=== PATIENT | female | born 1985 | race Two or more races ===

== ENCOUNTER 2017-02-20 11:57 | Emergency (ER) | payer MEDICAID ==
[2017-02-20 14:29] LABS: Hematocrit 39 % (35-47); Mean Corpuscular HGB Conc 34 g/dl (31-36); Mean Corpuscular Hemoglobin 28 pg (27-31); Mean Corpuscular Volume 84 fL (80-97); Mean Platelet Volume 9 um3 (7.4-10.4); Red Blood Count 4.65 10^6/ul (4.0-5.4); Red Cell Distribution Width 17 % (10.5-15); White Blood Count 7.1 10^3/ul (3.5-10.8)
[2017-02-20 14:46] LABS: Urine Bacteria Absent (Absent); Urine Bilirubin Negative (Negative); Urine Glucose Negative (Negative); Urine Nitrite Negative (Negative)
[2017-02-20 14:48] LABS: ALT 25 U/L (7-52); AST 22 U/L (13-39); Albumin 3.8 g/dL (3.2-5.2); Alkaline Phosphatase 107 U/L (34-104); Anion Gap 5 mmol/L (2-11); BUN/Creatinine Ratio 21.4 (8-20); Blood Urea Nitrogen 12 mg/dL (6-24); CO2 Carbon Dioxide 28 mmol/L (22-32); Calcium 8.8 mg/dL (8.6-10.3); Chloride 104 mmol/L (101-111); EGFR African American 164.6 (>60); Globulin 3.1 g/dL (2-4); Glucose 89 mg/dL (70-100); Potassium 3.4 mmol/L (3.5-5.0); Sodium 137 mmol/L (133-145); Total Protein 6.9 g/dL (6.4-8.9)
[2017-02-20 15:39] VITALS: BP 102/86
--- NOTE | 2017-02-20 18:38 | ED ---
Karmen Montague Anna, scribed for Kory Santos MD on 02/20/17 at 1300 . GI/ HPI - HPI Summary HPI Summary: Patient is a 31 y/o female coming to [facility] presenting with sudden onset of intermittent vaginal discharge that began last night. She had a positive home test three days ago. She had some brown spotting last night and had pink discharge and blood this morning. She took a home test this morning, which was negative. Her last normal period was 12/29/2016. She has some pelvic pain when she feels the spotting coming, of severity 3/10. The pain then resolves. Her history is significant for an ovarian cyst four months ago. - History of Current Complaint Chief Complaint: EDUrogenitalProblems Time Seen by Provider: 02/20/17 12:43 Stated Complaint: POSSITIVE PREG TEST NOW BLEEDING Hx Obtained From: Patient Timing: Intermittent Pain Intensity: 3 - Allergy/Home Medications Allergies/Adverse Reactions: Allergies Allergy/AdvReac Type Severity Reaction Status Date / Time No Known Allergies Allergy Verified 10/07/16 11:38 PMH/Surg Hx/FS Hx/Imm Hx Endocrine/Hematology History: Denies: Hx Anticoagulant Therapy, Hx Diabetes, Hx Thyroid Disease Cardiovascular History: Denies: Hx Hypertension, Hx Pacemaker/ICD Respiratory History: Denies: Hx Asthma, Hx Chronic Obstructive Pulmonary Disease (COPD) GI History: Denies: Hx Ulcer History: Reports: Other Problems/Disorders - ovarian cyst Denies: Hx Renal Disease Neurological History: Denies: Hx Dementia, Hx Seizures Psychiatric History: Denies: Hx Substance Abuse Infectious Disease History: No Infectious Disease History: Denies: Hx Hepatitis, Hx Human Immunodeficiency Virus (HIV), Traveled Outside the [place] in Last 30 Days - Family History Known Family History: Positive: Cardiac Disease - mother - [place] at 41 - Social History Alcohol Use: None Substance Use Type: Reports: None Smoking Status (MU): Never Smoked Tobacco Review of Systems Positive: discharge Positive: Myalgia - pelvic pain All Other Systems Reviewed And Are Negative: Yes Physical Exam Triage Information Reviewed: Yes Vital Signs On Initial Exam: Initial Vitals Temp Pulse Resp BP Pulse Ox 97.7 F 89 20 120/74 100 02/20/17 12:03 02/20/17 12:03 02/20/17 12:03 02/20/17 12:03 02/20/17 12:03 Vital Signs Reviewed: Yes Appearance: Positive: Well-Appearing, No Pain Distress Skin: Positive: Warm, Skin Color Reflects Adequate Perfusion, Dry Head/Face: Positive: Normal Head/Face Inspection Eyes: Positive: Normal ENT: Positive: Normal ENT inspection Neck: Positive: Supple, Nontender Respiratory/Lung Sounds: Positive: Clear to Auscultation, Breath Sounds Present Cardiovascular: Positive: RRR Abdomen Description: Positive: Soft, Other: - Very mild suprapubic tenderness Bowel Sounds: Positive: Present Musculoskeletal: Positive: Normal Neurological: Positive: Normal Psychiatric: Positive: Affect/Mood Appropriate Diagnostics - Vital Signs Vital Signs Temp Pulse Resp BP Pulse Ox 02/20/17 12:03 97.7 F 89 20 120/74 100 - Laboratory Lab Results: Lab Results 02/20/17 02/20/17 02/20/17 Range/Units 14:05 14:05 14:05 WBC 7.1 (3.5-10.8) 10^3/ul RBC 4.65 (4.0-5.4) 10^6/ul Hgb 13.0 (12.0-16.0) g/dl Hct 39 (35-47) % MCV 84 (80-97) fL MCH 28 (27-31) pg MCHC 34 (31-36) g/dl RDW 17 H (10.5-15) % Plt Count 237 (150-450) 10^3/ul MPV 9 (7.4-10.4) um3 Neut % (Auto) 63.4 (38-83) % Lymph % (Auto) 29.2 (25-47) % [place] % (Auto) 4.3 (1-9) % Eos % (Auto) 2.6 (0-6) % Baso % (Auto) 0.5 (0-2) % Absolute Neuts (auto) 4.5 (1.5-7.7) 10^3/ul Absolute Lymphs (auto) 2.1 (1.0-4.8) 10^3/ul Absolute Monos (auto) 0.3 (0-0.8) 10^3/ul Absolute Eos (auto) 0.2 (0-0.6) 10^3/ul Absolute Basos (auto) 0 (0-0.2) 10^3/ul Absolute Nucleated RBC 0 10^3/ul Nucleated RBC % 0.1 Sodium 137 (133-145) mmol/L Potassium 3.4 L (3.5-5.0) mmol/L Chloride 104 (101-111) mmol/L Carbon Dioxide 28 (22-32) mmol/L Anion Gap 5 (2-11) mmol/L BUN 12 (6-24) mg/dL Creatinine 0.56 (0.51-0.95) mg/dL Est GFR ( Amer) 164.6 (>60) Est GFR (Non-Af Amer) 128.0 (>60) BUN/Creatinine Ratio 21.4 H (8-20) Glucose 89 (70-100) mg/dL Calcium 8.8 (8.6-10.3) mg/dL Total Bilirubin 0.20 (0.2-1.0) mg/dL AST 22 (13-39) U/L ALT 25 (7-52) U/L Alkaline Phosphatase 107 H (34-104) U/L Total Protein 6.9 (6.4-8.9) g/dL Albumin 3.8 (3.2-5.2) g/dL Globulin 3.1 (2-4) g/dL Albumin/Globulin Ratio 1.2 (1-3) Beta HCG, Quant < 0.60 mIU/mL Urine Color Yellow Urine Appearance Cloudy Urine pH 7.0 (5-9) Ur Specific [place] 1.019 (1.010-1.030) Urine Protein Negative (Negative) Urine Ketones Negative (Negative) Urine Blood Negative (Negative) Urine Nitrate Negative (Negative) Urine Bilirubin Negative (Negative) Urine Urobilinogen Negative (Negative) Ur Leukocyte Esterase Trace H (Negative) Urine WBC (Auto) 1+(6-10/hpf) H (Absent) Urine RBC (Auto) Absent (Absent) Ur Squamous Epith Cells Present H (Absent) Amorphous Crystals Present H (Absent) Urine Bacteria Absent (Absent) Urine Glucose Negative (Negative) Urine Ascorbic Acid * H (Negative) Blood Type 02/20/17 Range/Units 14:05 WBC (3.5-10.8) 10^3/ul RBC (4.0-5.4) 10^6/ul Hgb (12.0-16.0) g/dl Hct (35-47) % MCV (80-97) fL MCH (27-31) pg MCHC (31-36) g/dl RDW (10.5-15) % Plt Count (150-450) 10^3/ul MPV (7.4-10.4) um3 Neut % (Auto) (38-83) % Lymph % (Auto) (25-47) % [place] % (Auto) (1-9) % Eos % (Auto) (0-6) % Baso % (Auto) (0-2) % Absolute Neuts (auto) (1.5-7.7) 10^3/ul Absolute Lymphs (auto) (1.0-4.8) 10^3/ul Absolute Monos (auto) (0-0.8) 10^3/ul Absolute Eos (auto) (0-0.6) 10^3/ul Absolute Basos (auto) (0-0.2) 10^3/ul Absolute Nucleated RBC 10^3/ul Nucleated RBC % Sodium (133-145) mmol/L Potassium (3.5-5.0) mmol/L Chloride (101-111) mmol/L Carbon Dioxide (22-32) mmol/L Anion Gap (2-11) mmol/L BUN (6-24) mg/dL Creatinine (0.51-0.95) mg/dL Est GFR ( Amer) (>60) Est GFR (Non-Af Amer) (>60) BUN/Creatinine Ratio (8-20) Glucose (70-100) mg/dL Calcium (8.6-10.3) mg/dL Total Bilirubin (0.2-1.0) mg/dL AST (13-39) U/L ALT (7-52) U/L Alkaline Phosphatase (34-104) U/L Total Protein (6.4-8.9) g/dL Albumin (3.2-5.2) g/dL Globulin (2-4) g/dL Albumin/Globulin Ratio (1-3) Beta HCG, Quant mIU/mL Urine Color Urine Appearance Urine pH (5-9) Ur Specific [place] (1.010-1.030) Urine Protein (Negative) Urine Ketones (Negative) Urine Blood (Negative) Urine Nitrate (Negative) Urine Bilirubin (Negative) Urine Urobilinogen (Negative) Ur Leukocyte Esterase (Negative) Urine WBC (Auto) (Absent) Urine RBC (Auto) (Absent) Ur Squamous Epith Cells (Absent) Amorphous Crystals (Absent) Urine Bacteria (Absent) Urine Glucose (Negative) Urine Ascorbic Acid (Negative) Blood Type O Positive Result Diagrams: 02/20/17 14:05 02/20/17 14:05 Lab Statement: Any lab studies that have been ordered have been reviewed, and results considered in the medical decision making process. Re-Evaluation - Re-Evaluation First Eval Re-Evaluation Time: 15:06 Change: Unchanged Comment: Patient feels nauseous and still feels pelvic pain. Discussed results and plan of care with patient. Patient agrees with plan. GIGU Course/Dx - Course Course Of Treatment: Ms. Pete had a negative HCG and it is possible that this was a missed AB and she is starting her bleeding now. She was reassured and recommended F/U. - Diagnoses Provider Diagnoses: Dysfunctional uterine bleeding Discharge - Discharge Plan Condition: Stable Disposition: HOME Patient Education Materials: Dysfunctional Uterine Bleeding (ED) Referrals: Herb Rico MD [Primary Care Provider] - Additional Instructions: Follow up with primary care provider within one week. Return to the emergency department for any new or worsening symptoms. The documentation as recorded by the Karmen canales Anna accurately reflects the service I personally performed and the decisions made by me, Kory Santos MD.
== END 2017-02-20 15:36 | disposition home or self-care (01) ==
LOC: ED 11:57
DX: N93.8 Other specified abnormal uterine and vaginal bleeding (principal)
CPT/HCPCS: 36415; 80053; 81003; 81015; 84702; 85025; 86900; 86901; 87086; 99282

== ENCOUNTER 2018-02-16 09:19 | Inpatient (IN) | payer OTHER ==
--- NOTE | 2018-02-16 12:26 | HP ---
General Information - General Information Maternal Age: 32 Grav: 3 Para: 2 SAB: 0 IEA: 0 Estimated Due Date: 02/25/18 Determined By: LMP Gestational Age in Weeks and Days: 38 Weeks and 5 Days Maternal Blood Type and Rh: O Positive - Results this Serology/RPR Result: Non-Reactive Rubella Result: Immune HBsAg Result: Negative HIV Result: Negative GBS Culture Result: Negative Past Medical History Delivery History: Hx Uncomplicated Vaginal Delivery Pertinent Past Medical History: See Records Past Medical History Comment: Gestational Diabetes diet controlled clomid induced pregancy Marginal Previa/ Resolved 11/07/2017 Pertinent Past Surgical History: None Pertinent Family History: See Records Family History Comment: DM, CVD, Breast CA - Antepartal Records Antepartal Records: Reviewed, Complicated by: - Gestational Diabetes, marginal previa resolved Review of Systems Constitutional: Uncomfortable CV Complaint: No Respiratory: Shortness of Breath: No Gastrointestinal: No Nausea/Vomiting Genitourinary: No Dysuria, No Bleeding, No Leaking Fluid Musculoskeletal: Contractions Neurological: No Headache Movement: Normal Exam Allergies/Adverse Reactions: Allergies No Known Allergies Allergy (Verified 10/07/16 11:38) BP: 137/73, P:61, R:20, T:98, O2 stats: 100 - Measurements Height: 4 ft 9 in Weight: 150 lb Weight in lbs: 150 Body Mass Index (BMI): 32.4 Pre- Weight: 146 lb Weight Gained This : 4 lbs and 0 ozs - Cervical Exam 5/90/-2 - Abdominal Exam Abdomen Exam: Non-Tender - Membranes Membrane Status: Intact EFM Findings - External Monitor Findings Baseline Heart Rate: 140 External Monitor Findings: Accelerations Present, No Pattern of Variable or Late Decelerations, Variability Moderate Contractions: Regular, Moderate, 45-90 Seconds Contraction Frequency: 6 Assessment/Plan - Reason for Visit Reason for Visit: labor - Obstetrical Risk Factors Obstetrical Risk Factors: Gestational Diabetes Risk Factors Comment: Diet controlled - Plan Plan: Early Labor - Date/Time of Admission Date of Admission: 02/16/18 Time of Admission: 12:00
[2018-02-16] MEDS ORDERED: OBEPIDURAL* 250 ML EPIDURAL ONE (13:51)
[2018-02-16 13:58] LABS: ABS Basophils 0 10^3/ul (0-0.2); ABS Eosinophils 0 10^3/ul (0-0.6); ABS Lymphocytes 1.5 10^3/ul (1.0-4.8); ABS Monocytes 0.3 10^3/ul (0-0.8); ABS Neutrophils 4.6 10^3/ul (1.5-7.7); ABS Nucleated RBC 0 10^3/ul; Eosinophil % 0.4 % (0-6); Hematocrit 32 % (35-47); Hemoglobin 10.5 g/dl (12.0-16.0); Lymphocyte % 23.8 % (25-47); Mean Corpuscular HGB Conc 33 g/dl (31-36); Mean Corpuscular Hemoglobin 25 pg (27-31); Mean Corpuscular Volume 77 fL (80-97); Mean Platelet Volume 9.7 um3 (7.4-10.4); Nucleated Red Blood Cells % 0.3; Platelet Count 134 10^3/ul (150-450); Red Blood Count 4.18 10^6/ul (4.0-5.4); Red Cell Distribution Width 15 % (10.5-15); White Blood Count 6.4 10^3/ul (3.5-10.8)
[2018-02-16] MEDS ORDERED: EPHEDrine (Pressors)* 50 MG/ML VIAL IV PUSH PRN ×2 (14:46)
[2018-02-16] MEDS ORDERED: Famotidine TAB* 20 MG PO PRN (14:46)
[2018-02-16] MEDS ORDERED: Sodium Citrate/Citric Acid* 15 ML UDC PO PRN (14:46)
[2018-02-16] MEDS ORDERED: Phenylephrine IV* 40 MCG/ML 10 ML SYRINGE IV PUSH PRN ×2 (14:46)
[2018-02-16] MEDS ORDERED: OBEPIDURAL* 250 ML EPIDURAL SCH (15:00)
[2018-02-16] MEDS ORDERED: Oxytocin in LR* 20 UNITS/1,000 ML BAG IVPB ONE (18:39)
[2018-02-16] MEDS ORDERED: Dibucaine 1% 28.35 GM TUBE PR PRN (19:02)
[2018-02-16] MEDS ORDERED: Glycerin ADULT SUPP PR PRN (19:02)
[2018-02-16] MEDS ORDERED: Acetaminophen TAB* 325 MG PO PRN (19:02)
[2018-02-16] MEDS ORDERED: Witch Hazel PAD* JAR TOPICAL PRN (19:02)
[2018-02-16] MEDS ORDERED: Oxytocin in LR* 20 UNITS/1,000 ML BAG IVPB SCH (20:00)
[2018-02-16] MEDS ORDERED: Simethicone TAB* 80 MG TAB.CHEW PO SCH (21:00)
[2018-02-16] MEDS: Ibuprofen TAB* 600 MG PO PRN (21:34)
[2018-02-16] MEDS: Docusate CAP* 100 MG PO SCH (21:52)
[2018-02-17] MEDS: Ibuprofen TAB* 600 MG PO PRN ×3 (04:09→15:55)
[2018-02-17 06:58] LABS: ABS Basophils 0 10^3/ul (0-0.2); ABS Eosinophils 0.1 10^3/ul (0-0.6); ABS Lymphocytes 1.9 10^3/ul (1.0-4.8); ABS Monocytes 0.5 10^3/ul (0-0.8); ABS Neutrophils 6.4 10^3/ul (1.5-7.7); ABS Nucleated RBC 0 10^3/ul; Hematocrit 26 % (35-47); Hemoglobin 8.6 g/dl (12.0-16.0); Lymphocyte % 21.6 % (25-47); Mean Corpuscular HGB Conc 33 g/dl (31-36); Mean Corpuscular Hemoglobin 26 pg (27-31); Mean Corpuscular Volume 77 fL (80-97); Mean Platelet Volume 9.8 um3 (7.4-10.4); Nucleated Red Blood Cells % 0; Platelet Count 117 10^3/ul (150-450); Red Blood Count 3.36 10^6/ul (4.0-5.4); Red Cell Distribution Width 15 % (10.5-15); White Blood Count 8.9 10^3/ul (3.5-10.8)
[2018-02-17] MEDS ORDERED: Ferrous Gluconate TAB* 324 MG TAB PO SCH (09:00)
[2018-02-17] MEDS: Docusate CAP* 100 MG PO SCH ×2 (09:56→15:55)
[2018-02-17 15:58] VITALS: BP 120/74
[2018-02-17] MEDS ORDERED: Tetan/Diph/Pertus SYR(Tdap)* 0.5 ML SYR(BOOSTRIX) use SYR IM ONE (18:00)
== END 2018-02-17 19:25 | disposition home or self-care (01) | DRG 560 ==
LOC: MCHOBOUT 09:19 → MCHOB 11:41
PROVIDERS: ADMIT Midwife; ATTEND Midwife
PROC: 10E0XZZ Delivery of Products of Conception, External Approach (ICD-10-PCS; principal; 2018-02-16)
PROC: 0HQ9XZZ Repair Perineum Skin, External Approach (ICD-10-PCS; 2018-02-16)
DX: O60.23X1 Term delivery with preterm labor, third trimester, fetus 1 (principal); O24.420 Gestational diabetes mellitus in childbirth, diet controlled; O70.0 First degree perineal laceration during delivery; Z3A.38 38 weeks gestation of pregnancy; Z37.0 Single live birth
CPT/HCPCS: 36415; 59200; 85025; 86850; 86900; 86901; 90715; A9270-GY

== ENCOUNTER 2019-10-31 08:00 | Emergency (ER) | payer SELFPAY ==
[2019-10-31 08:12] VITALS: BP 119/84
--- NOTE | 2019-10-31 09:08 | UC ---
Complaint Female HPI - HPI Summary HPI Summary: SEVERAL DAYS OF VAGINAL IRRITATION/ITCHING. NO CHANGE IN VAGINAL DISCHARGE. NOTED TEMPERATURE OF 101 LAST NIGHT. DENIES ANY URINARY SYMPTOMS. NO NAUSEA, BACK PAIN. WONDERS IF SHE HAS A YEAST INFECTION. STATES SHE HAS HAD SIMILAR SYMPTOMS 2 OTHER TIMES OVER THE PAST FEW MONTHS. THE SYMPTOMS RESOLVED WITH OTC MONISTAT. IS SEXUALLY ACTIVE WITH HER . NOT CONCERNED ABOUT STDS. - History Of Current Complaint Chief Complaint: UCGU Stated Complaint: Personal Time Seen by Provider: 10/31/19 08:16 Hx Obtained From: Patient Hx Last Menstrual Period: 10/10/19 Onset/Duration: Gradual Onset, Lasting Days, Still Present Timing: Constant Severity Initially: Moderate Severity Currently: Moderate Pain Intensity: 0 Pain Scale Used: 0-10 Numeric Aggravating Factor(s): Nothing Alleviating Factor(s): Nothing Associated Signs And Symptoms: Negative: Fever, Back Pain, Vaginal Bleeding/ Discharge, Nausea - Allergies/Home Medications Allergies/Adverse Reactions: Allergies Allergy/AdvReac Type Severity Reaction Status Date / Time No Known Allergies Allergy Verified 10/31/19 08:12 Home Medications: Home Medications Cranberry Conc/C/Bacill Coag [Azo Cranberry Tablet] 1 tab PO DAILY PRN 10/31/19 [History Confirmed 10/31/19] Ibuprofen TAB* [Advil TAB*] 600 mg PO Q6H PRN 10/31/19 [History Confirmed ] PMH/Surg Hx/FS Hx/Imm Hx Previously Healthy: Yes Other History Of: Negative For: Anticoagulant Therapy - Surgical History Surgical History: None - Family History Known Family History: Positive: Cardiac Disease - mother - [place] at 41 - Social History Alcohol Use: None Substance Use Type: None Smoking Status (MU): Never Smoked Tobacco - Immunization History Most Recent Influenza Vaccination: declined Most Recent Tetanus Shot: 2009 Most Recent Pneumonia Vaccination: never Review of Systems All Other Systems Reviewed And Are Negative: Yes Constitutional: Positive: Negative Skin: Positive: Negative Respiratory: Positive: Negative Cardiovascular: Positive: Negative Gastrointestinal: Positive: Negative Genitourinary: Positive: Vaginal/Penile Itching. Negative: Dysuria, Frequency, Urgency Physical Exam Triage Information Reviewed: Yes Appearance: Well-Appearing, No Pain Distress, Well-Nourished Vital Signs: Initial Vital Signs Temp 99.0 F 10/31/19 08:07 Pulse 79 10/31/19 08:07 Resp 16 10/31/19 08:07 BP 119/84 10/31/19 08:07 Pulse Ox 100 10/31/19 08:07 Laboratory Tests 10/31/19 08:30 POC Urine Color Yellow POC Urine Clarity Clear POC Urine pH 5.5 POC Ur Specif [place] >= 1.030 POC Urine Protein Negative POC Ur Glucose (UA) Negative POC Urine Ketones Negative POC Urine Blood Negative POC Urine Nitrite Negative POC Urine Bilirubin Negative POC Urine Urobilinogen 0.2 POC U Leukocyte Esteras 1+ A Vital Signs Reviewed: Yes Eyes: Positive: Conjunctiva Clear ENT: Positive: Hearing grossly normal Neck: Positive: Supple Respiratory: Positive: No respiratory distress, No accessory muscle use Cardiovascular: Positive: Pulses Normal Abdomen Description: Positive: Soft. Negative: CVA Tenderness (R), CVA Tenderness (L) Pelvic Exam: Positive: Bimanual Exam Normal, No Cerv. Motion Tender, No Masses, Discharge - THIN WHITE/BAUM DISCHARGE WITH THICK CLUMPS IN VAGINAL VAULT, Other - LINEAR SUPERFICIAL SKIN EROSION IN SKIN FOLD BETWEEN RIGHT LABIA MAJORA AND MINORA. IRRITATION, ERYTHEMA AT INTROITUS.. Negative: Blood Musculoskeletal: Positive: No Edema Neurological: Positive: Alert Psychological: Positive: Age Appropriate Behavior Skin: Negative: Rashes Complaint Female Dx - Course Course Of Treatment: PRESENTATION CONSISTENT WITH YEAST VAGINITIS. WILL COVER WITH FLUCONAZOLE. SWAB SENT FOR TESTING. PATIENT MAY ALSO HAVE BACTERIAL VAGINOSIS. ADVISED TO ABSTAIN FROM SEXUAL INTERCOURSE UNTIL SYMPTOMS HAVE COMPLETELY RESOLVED. SHE ALSO HAS A SUPERFICIAL SKIN EROSION IN THE FOLDS BETWEEN HER LABIA WHICH IS LIKELY DUE TO BREAKDOWN FROM CONSTANT MOISTURE AND CHAFING. ENCOURAGED TO USE A DESICCANT ONCE OR TWICE DAILY TO THE AREA TO HELP IT DRY OUT AND HEAL OVER. IT IS NOT INFECTED. - Differential Dx/Diagnosis Provider Diagnosis: Yeast vaginitis Discharge ED - Sign-Out/Discharge Documenting (check all that apply): Patient Departure All imaging exams completed and their final reports reviewed: No Studies - Discharge Plan Condition: Stable Disposition: HOME Prescriptions: Fluconazole 150 MG (NF) [Diflucan 150 mg (NF)] 150 mg PO ONCE #2 tab Patient Education Materials: Yeast Infection (ED) Referrals: [facility] [Provider Group] - If Needed Herb Rico MD [Primary Care Provider] - If Needed Additional Instructions: YOUR EXAM IS CONSISTENT WITH A VAGINAL YEAST INFECTION. TAKE THE DIFLUCAN PRESCRIBED. EAT YOGURT. WHILE NOT AN STD I WOULD ABSTAIN FROM SEXUAL INTERCOURSE FOR THE NEXT 1-2 WEEKS OR UNTIL SYMPTOMS ARE COMPLETELY RESOLVED. SWAB SENT FOR TESTING FOR VARIOUS FORMS OF VAGINITIS. WE WILL CALL YOU IF YOUR TREATMENT NEEDS TO BE CHANGED. YOU ALSO HAVE A SUPERFICIAL BREAKDOWN OF THE SKIN IN THE FOLD BETWEEN YOUR LABIA MAJORA AND LABIA MINORA. THIS IS LIKELY DUE TO THE MOIST ENVIRONMENT AND CHAFING. KEEP THE AREA CLEAN AND DRY. RECOMMEND YOU APPLY A SPARING AMOUNT OF A DESICCANT SUCH CORN STARCH TO KEEP THE AREA DRY. IT SHOULD RESOLVE WITHIN A FEW DAYS. - Billing Disposition and Condition Condition: STABLE Disposition: Home
--- NOTE | 2019-11-01 07:14 | UC ---
- Progress Note Progress Note: + elizabeth - treated with diflucan neg gardnerella, neg trich no change henna 11/01/19 Course/Dx - Diagnoses Provider Diagnoses: Yeast vaginitis Discharge ED - Sign-Out/Discharge Documenting (check all that apply): Post-Discharge Follow Up All imaging exams completed and their final reports reviewed: No Studies - Discharge Plan Condition: Stable Disposition: HOME Prescriptions: Fluconazole 150 MG (NF) [Diflucan 150 mg (NF)] 150 mg PO ONCE #2 tab Patient Education Materials: Yeast Infection (ED) Referrals: [facility] [Provider Group] - If Needed Herb Rico MD [Primary Care Provider] - If Needed Additional Instructions: YOUR EXAM IS CONSISTENT WITH A VAGINAL YEAST INFECTION. TAKE THE DIFLUCAN PRESCRIBED. EAT YOGURT. WHILE NOT AN STD I WOULD ABSTAIN FROM SEXUAL INTERCOURSE FOR THE NEXT 1-2 WEEKS OR UNTIL SYMPTOMS ARE COMPLETELY RESOLVED. SWAB SENT FOR TESTING FOR VARIOUS FORMS OF VAGINITIS. WE WILL CALL YOU IF YOUR TREATMENT NEEDS TO BE CHANGED. YOU ALSO HAVE A SUPERFICIAL BREAKDOWN OF THE SKIN IN THE FOLD BETWEEN YOUR LABIA MAJORA AND LABIA MINORA. THIS IS LIKELY DUE TO THE MOIST ENVIRONMENT AND CHAFING. KEEP THE AREA CLEAN AND DRY. RECOMMEND YOU APPLY A SPARING AMOUNT OF A DESICCANT SUCH CORN STARCH TO KEEP THE AREA DRY. IT SHOULD RESOLVE WITHIN A FEW DAYS. - Billing Disposition and Condition Condition: STABLE Disposition: Home
== END 2019-10-31 09:32 | disposition home or self-care (01) ==
LOC: UCEAST 08:00
DX: B37.3 Candidiasis of vulva and vagina (principal)
CPT/HCPCS: 81003; 87086; 87480; 87510; 87660; 99212; G0463